=== PATIENT | female | born 1985 | race Caucasian/White ===

== ENCOUNTER 2018-10-24 07:49 | Emergency (ER) | payer SELFPAY ==
[2018-10-24 08:22] LABS: Bilirubin Moderate (Negative); Blood, Urine Large (Negative); Glucose, Urine (Dipstick) Negative (Negative); Leukocyte Negative (Negative); Nitrite Negative (Negative); Protein, Urine (Dipstick) Negative (Neg-Trace)
[2018-10-24 08:23] LABS: Clarity Hazy (Clear)
[2018-10-24] MEDS ORDERED: Ibuprofen 800 MG TAB ONE (08:23)
[2018-10-24] MEDS ORDERED: Ondansetron ODT 4 MG TAB ONE (08:23)
[2018-10-24 08:25] LABS: RBC/HPF Greater than 50 HPF (0-3); WBC/HPF 0-3 HPF (0-3)
[2018-10-24 08:26] LABS: Calcium Oxalate Crystals Rare HPF (None Seen)
[2018-10-24 08:27] LABS: Bacteria/HPF 1+ HPF (None Seen)
[2018-10-24 08:54] LABS: Phencyclidine (PCP) Not Detected (NotDetected); THC/Cannabinoid Screen Detected (NotDetected)
[2018-10-24 08:55] LABS: Amphetamine Detected (NotDetected); Barbiturates Screen Not Detected (NotDetected); Benzodiazepine Screen Not Detected (NotDetected); Cocaine Metabolite Screen Not Detected (NotDetected); Medtox Control Line Valid? VALID (VALID); Methadone Not Detected (NotDetected); Methamphetamine Detected (NotDetected); Opiate Screen Not Detected (NotDetected); Oxycodone Screen Not Detected (NotDetected); Tricyclic Screen Not Detected (NotDetected)
--- NOTE | 2018-10-24 09:18 | CT ---
CT ABDOMEN AND PELVIS WITHOUT IV CONTRAST: INDICATIONS: Abdominal pain. Hematuria. TECHNIQUE: Multiplanar reconstruction performed. FINDINGS: The lung bases are clear. The liver, spleen, and pancreas are unremarkable, given the limitations of a noncontrasted study. Th e patient is post cholecystectomy. The stomach and duodenum appear unremarkable. The adrenal glands appear normal. Review of the urinary tract reveals no evidence of hydronephrosis. No evidence of urinary tract calc ulus identified. The urinary bladder is contracted and not adequately evaluated. Small bowel loops appear of normal caliber. The appendix is identified and is unremarkable. The col on is unremarkable. The aorta is of normal caliber. Nonspecific periaortic lymph nodes. No free fl uid. Images through the pelvis show evidence of a hysterectomy. IMPRESSION: No evidence of acute process. POS: OFF
== END 2018-10-24 09:20 | disposition home or self-care (01) ==
LOC: MADERS 07:49
DX: R31.9 Hematuria, unspecified (principal); R10.9 Unspecified abdominal pain; R11.2 Nausea with vomiting, unspecified; F17.210 Nicotine dependence, cigarettes, uncomplicated; Z85.43 Personal history of malignant neoplasm of ovary; Z79.899 Other long term (current) drug therapy; Z71.6 Tobacco abuse counseling
CPT/HCPCS: 74176; 80306; 81003; 81015; 87086; 99406; Q0162